=== PATIENT | male | born 1960 | race Caucasian/White ===

== ENCOUNTER 2017-04-04 21:39 | Emergency (ER) | payer OTHER ==
--- NOTE | ~2017-04-04 | CR72 ---
[facility]. [facility] A Service of [facility] / [facility] RADIOLOGY TEXT RESULTS PATIENT: THA LUONG LOCATION: SED : 64 UNIT #: [id number] AGE: [address]: Dung Enamorado DO SEX: M ORDER DR: [id number] [place] [id number] E MR#: [id number] Acc #: [id number] NAME: THA LUONG : 1960 SEX: M STUDY DATE/TIME: 04/05/2017 1:16 UNIT: SED ROOM: STUDY DESCRIPTION: CR Chest Single View Portable Attending Physician: Dung Enamorado Ordering Physician: Dung Enamorado MEDICAL IMAGING REPORT This report is preliminary unless electronic signature is present. EXAM Portable chest INDICATION Hypotension today. PROCEDURE Frontal view chest COMPARISON 11/17/2014 FINDINGS Mild cardiomegaly slightly increased. Lungs are clear. No pleural fluid. No pneumothorax. IMPRESSION Mild cardiomegaly slightly increased from 2014. No active process. Dictated by... Chris Zimmerman M.D. THIS IS AN ELECTRONICALLY VERIFIED REPORT Chris Zimmerman M.D. at 04/05/2017 9:58 PM Gege TD: 04/05/2017 09:26 JOB #: [id number] MEDICAL IMAGING REPORT Page 1 of 1
--- NOTE | ~2017-04-04 | EKG ---
PATIENT: THA LUONG UNIT #: [id number] Ventricular Rate: 146 BPM Atrial Rate: 166 BPM QRS Duration: 94 ms Q-T Interval: 314 ms QTC Calculation(Bezet): 489 ms Calculated R [place]: 42 degrees Calculated T [place]: 5 degrees Diagnosis Line: Atrial fibrillation with rapid ventricular Diagnosis Line: response Diagnosis Line: Cannot rule out Anterior infarct , age Diagnosis Line: undetermined Diagnosis Line: ST and T wave abnormality, consider inferior Diagnosis Line: ischemia or digitalis effect Diagnosis Line: Abnormal ECG Diagnosis Line: When compared with ECG of 17-NOV-2014 21:31, Diagnosis Line: Atrial fibrillation has replaced Sinus rhythm Diagnosis Line: Non-specific change in ST segment in Inferior Diagnosis Line: leads Diagnosis Line: Non-specific change in ST segment in Lateral leads Diagnosis Line: T wave inversion now evident in Inferior leads Diagnosis Line: Confirmed by PAULY MORRISON MD ([id number]) on Diagnosis Line: 04/08/2017 3:22:33 PM INTERPRETING MD: PRINCE HERRERA
[~2017-04-04 21:39] MED LIST: ATARAX PO; BAYER CHEWABLE81 MG PO; BENADRYL25 MG PO; BLOOD PRESSURE; CIPRO PO; DARVOCET-N 1001 TAB PO; FLOMAX0.4 M1 PO; GLUCOPHAGE500 MG PO; GLUCOTROL PO; KEFLEX500 M1 PO; LEVAQUIN750 MG PO; LISINOPRIL; LOPRESSOR PO; LOTENSIN HCT 11 EACH PO; METFORMIN; MULTI VITAMIN1 EACH PO; PERCOCET 5-3251 TAB PO; PHENERGAN25 MG PO; PREDNISONE10 MG PO; TYLENOL #3 PO; ULTRAM PO; VICODIN 5/1 TAB 5/50 PO; ZANTAC150 M1 PO; [UNRECOGNIZED DRUG - REMARK]
[2017-04-04] MEDS ORDERED: GABAPENTIN300 M2 (21:47)
[2017-04-04 22:55] LABS: POC - CKMB 1.1 ng/mL (0.0-7.9); POC - TROPONIN <0.05 ng/mL (<=0.05)
[2017-04-04 22:57] LABS: ALBUMIN SERUM 3.1 g/dL (3.5-5.0); BILIRUBIN, DIRECT 0.1 mg/dL (0.0-0.2); BILIRUBIN,INDIRECT 0.5 mg/dL (0.0-0.9); BILIRUBIN,TOTAL 0.6 mg/dL (0.2-2.0); BUN/CREATININE RATIO 19.16; CALCIUM SERUM 8.7 mg/dL (8.4-10.2); CREATININE SERUM 1.2 mg/dL (0.6-1.4); GLOM FILT RATE Estimated 68.2 mL/min (>60); POTASSIUM 4.2 mmol/L (3.5-5.1); PROTEIN TOTAL SERUM 7.4 g/dL (6.0-8.3)
[2017-04-04 23:47] LABS: BASOPHIL# 0.1 X10e3 (0-0.3); BASOPHIL% 1.2 % (0-2.5); EOSINOPHIL# 0.1 X10e3 (0-0.7); EOSINOPHIL% 1.2 % (0.0-7.0); HEMATOCRIT 44.5 % (38.0-50.0); HEMOGLOBIN 14.9 gm/dL (13.0-16.0); LYMPHOCYTE% 34.4 % (17.0-45.0); MEAN CELL VOLUME 85.3 FL (83-96); MEAN CORPUSCULAR HEMOGLOBIN 28.5 PG (28-34); MEAN CORPUSCULAR HGB CONC 33.4 g/dL (30-36); MONOCYTE# 1.1 X10e3 (0-1.0); MONOCYTE% 12.7 % (3.0-12.0); NEUTROPHIL# 4.4 X10e3 (1.5-7.1); NEUTROPHIL% 50.5 % (40-75); PLATELET COUNT 232 X10e3 (140-420); RED BLOOD COUNT 5.22 X10e (3.90-5.60); RED CELL DISTRIBUTION WIDTH 13.8 % (11.0-15.5); WHITE BLOOD COUNT 8.8 X10e3 (4.0-10.5)
[2017-04-04 23:49] LABS: DIFF IND NO
[2017-04-05 00:02] LABS: PROTHROMBIN TIME (PATIENT) 11.8 SECONDS (9.5-12.4)
[2017-04-05 00:09] LABS: PARTIAL THROMBOPLASTIN TIME 29.6 SECONDS (25.6-38.1)
[2017-04-05 00:24] LABS: POC - CKMB 1.9 ng/mL (0.0-7.9); POC - TROPONIN <0.05 ng/mL (<=0.05)
== END 2017-04-05 03:20 | disposition left against medical advice (07) ==
LOC: SED 21:39
PROVIDERS: Emergency Medicine
DX: I48.91 Unspecified atrial fibrillation (principal); E11.65 Type 2 diabetes mellitus with hyperglycemia; Z91.19 Patient's noncompliance with other medical treatment and regimen; I10 Essential (primary) hypertension; Z98.890 Other specified postprocedural states; Z79.82 Long term (current) use of aspirin; Z79.899 Other long term (current) drug therapy
CPT/HCPCS: 36415; 71010; 80048; 80076; 82553; 82947; 84484; 85025; 85610; 85730; 93005; 96361; 96372; 96374; 99291; J1650